=== PATIENT | male | born 1980 | race Caucasian/White ===

== ENCOUNTER 2017-05-05 23:26 | Emergency (ER) | payer OTHER ==
[2017-05-06 01:11] VITALS: BP 146/77
== END 2017-05-06 01:11 | disposition home or self-care (01) ==
LOC: ED 23:26
DX: M94.0 Chondrocostal junction syndrome [Tietze] (principal)
CPT/HCPCS: J1885; Q0092

== ENCOUNTER 2019-01-26 12:58 | Emergency (ER) | payer OTHER ==
[~2019-01-26] VITALS: Ht 175.3 cm; Wt 73.0 kg
[2019-01-26 13:05] VITALS: Ht 175.3 cm; Wt 73.0 kg
[2019-01-26 13:43] VITALS: BP 134/77
== END 2019-01-26 13:43 | disposition home or self-care (01) ==
LOC: ED 12:58
DX: J06.9 Acute upper respiratory infection, unspecified (principal); F17.210 Nicotine dependence, cigarettes, uncomplicated
CPT/HCPCS: 99406

== ENCOUNTER 2019-06-05 11:30 | Emergency (ER) | payer OTHER ==
[~2019-06-05] VITALS: Ht 175.3 cm; Wt 78.0 kg
[2019-06-05 11:59] VITALS: BP 123/77; Ht 175.3 cm; Wt 78.0 kg
== END 2019-06-05 13:03 | disposition home or self-care (01) ==
LOC: ED 11:30
DX: B02.9 Zoster without complications (principal); G89.29 Other chronic pain; M54.9 Dorsalgia, unspecified

== ENCOUNTER 2020-01-15 17:23 | Emergency (ER) | payer OTHER ==
[~2020-01-15] VITALS: Ht 175.3 cm; Wt 78.5 kg
[2020-01-15 17:29] VITALS: Ht 175.3 cm; Wt 78.5 kg
[2020-01-15 19:16] LABS: CALCIUM 9.2 mg/dL (8.5-10.1); CARBON DIOXIDE 24.7 mmol/L (21-32); CHLORIDE SERUM 103 mmol/L (98-107); CREATININE SERUM 0.8 mg/dL (0.7-1.3); GFR1 > 60 mL/min; GLUCOSE SERUM 89 mg/dL (74-106); SODIUM SERUM 138 mmol/L (136-145)
[2020-01-15 19:20] LABS: ALBUMIN 4.2 g/dL (3.4-5.0); ALKALINE PHOSPHATASE 59 U/L (46-116); ALT/SGPT 19 U/L (16-63); AST/SGOT 15 U/L (15-37); BILIRUBIN TOTAL 0.38 mg/dL (0.20-1.00); TOTAL PROTEIN, SERUM 7.5 g/dL (6.4-8.2)
[2020-01-15 19:25] LABS: BASOPHIL % 0.1 % (0-2); PLATELET COUNT 192 x10^3mcL (130-400); RED CELL DISTRIBUTION WIDTH 13.7 % (11.5-14.5)
[2020-01-15 20:13] LABS: AMPHETAMINE QUAL UR NONE DETECTED (See below)
[2020-01-15 20:56] VITALS: BP 130/75
== END 2020-01-15 20:56 | disposition home or self-care (01) ==
LOC: ED 17:23
PROVIDERS: Emergency Medicine
DX: F11.23 Opioid dependence with withdrawal (principal); G89.29 Other chronic pain; F17.210 Nicotine dependence, cigarettes, uncomplicated
CPT/HCPCS: 36415; 99406; G0480; Q0162

== ENCOUNTER 2020-01-19 11:35 | Emergency (ER) | payer OTHER ==
[~2020-01-19] VITALS: Ht 175.3 cm; Wt 77.1 kg
[2020-01-19 11:41] VITALS: Ht 175.3 cm; Wt 77.1 kg
[2020-01-19 13:12] VITALS: BP 113/89
== END 2020-01-19 13:12 | disposition home or self-care (01) ==
LOC: ED 11:35
DX: F11.23 Opioid dependence with withdrawal (principal); M54.9 Dorsalgia, unspecified
CPT/HCPCS: G0480

== ENCOUNTER 2020-05-24 17:32 | Emergency (ER) | payer OTHER ==
[~2020-05-24] VITALS: Ht 175.3 cm; Wt 78.5 kg
[2020-05-24 17:46] VITALS: Ht 175.3 cm; Wt 78.5 kg
[2020-05-24 19:27] VITALS: BP 136/86
[2020-05-26 06:41] LABS: RAPID PLASMA REAGIN Non Reactive (Non Reactive)
== END 2020-05-24 19:27 | disposition home or self-care (01) ==
LOC: ED 17:32
PROVIDERS: Emergency Medicine
DX: Z11.3 Encounter for screening for infections with a predominantly sexual mode of transmission (principal)
CPT/HCPCS: 87491; 87591